=== PATIENT | female | born 1995 | race American Indian/Alaskan Native ===

== ENCOUNTER 2024-02-29 16:58 | Emergency (ER) | payer MEDICAID, SELFPAY ==
[2024-02-29 17:06] VITALS: BP 114/78; PULSE 91; RESP 16; TEMP 37.1; O2SAT 99; BMI 32.3
--- NOTE | 2024-02-29 17:12 | XR_ITS ---
Examination: Hand, left 3 views Technique: Hand AP, oblique, lateral 3 views Date and time of exam: February 29, 2024 1736 hrs. Indications: Injury to the hand today, hand pain Findings: No acute fracture. No dislocation. No foreign body Impression: No acute fracture
--- NOTE | 2024-02-29 17:13 | PD.EDRME ---
Rapid Medical Screening Exam [facility] Arrival date/time: 02/29/24 16:58 28-year-old female with no known medical history presents to the emergency room with a chief complaint of pain and tenderness to the third digit in the left hand. Patient states she was playing with her child and while playing injured the left third digit in her hand. Chief Complaint: Hand/Wrist Problems Vital signs: Vital Signs Temperature 98.7 F 02/29/24 17:06 Pulse Rate 91 02/29/24 17:06 Respiratory Rate 16 02/29/24 17:06 Blood Pressure 114/78 02/29/24 17:06 Pulse Oximetry (%) 99 02/29/24 17:06 Oxygen Delivery Method Room Air 02/29/24 17:06 Vital signs reviewed by provider: Yes
--- NOTE | 2024-02-29 20:04 | EDNOTE_ITS ---
Upper Extremity Injury RME/HPI General Chief Complaint: Hand/Wrist Problems Stated Complaint: NUMBNESS/SWELLING TO 3RD DIGIT OF LEFT HAND Time Seen by Provider: 02/29/24 19:13 Source: patient Arrival date/time: 02/29/24 16:58 28-year-old female past medical history of diabetes presents emergency department complaining of left third digit bruising and pain after hitting her hand while playing with her child. Mode of arrival: ambulatory Limitations: no limitations RME / HPI RME / HPI narrative: 02/29/24 16:58 28-year-old female with no known medical history presents to the emergency room with a chief complaint of pain and tenderness to the third digit in the left hand. Patient states she was playing with her child and while playing injured the left third digit in her hand. Related Data Previous Rx's ?Medication ?Instructions ?Recorded insulin glargine 100 unit/mL (3 25 unit (0.25 mL) subcut QPM 30 06/26/23 mL) subcutaneous pen (Lantus days #7.5 mL Solostar U-100 Insulin) insulin lispro 100 unit/mL 10 unit (0.1 mL) subcut TID 30 06/26/23 subcutaneous pen (Humalog KwikPen days #9 mL (U-100) Insulin) acetaminophen 300 mg-codeine 30 mg 2 tab PO TID PRN pain #20 tabs 12/05/23 tablet amoxicillin 875 mg-potassium 1 tab PO BID #20 tabs 12/05/23 clavulanate 125 mg tablet metformin 1,000 mg tablet 1,000 mg PO BID #60 tabs 12/05/23 Allergies Allergy/AdvReac Type Severity Reaction Status Date / Time No Known Allergies Allergy Verified 06/24/23 04:47 Review of Systems Review of Systems Systems Reviewed: All systems reviewed, normal except as documented Constitutional Constitutional: Reports system reviewed and no additional complaints, except as documented, Denies body ache(s), Denies chills and Denies fever(s) Eyes Eyes: Reports system reviewed and no additional complaints, except as documented and Denies change in vision ENT Ears, Nose, Mouth, and Throat: Reports system reviewed and no additional complaints, except as documented, Denies disequilibrium, Denies dizziness, Denies sore throat and Denies vertigo Cardiovascular Cardiovascular: Reports system reviewed and no additional complaints, except as documented, Denies chest pain and Denies dyspnea Respiratory Respiratory: Reports system reviewed and no additional complaints, except as documented, Denies chest congestion, Denies cough and Denies dyspnea Gastrointestinal Gastrointestinal: Reports system reviewed and no additional complaints, except as documented, Denies abdominal pain, Denies nausea and Denies vomiting Musculoskeletal Musculoskeletal: Reports system reviewed and no additional complaints, except as documented, Denies abnormal gait and Reports arthralgias Integumentary/Breasts Skin/Breast: Reports system reviewed and no additional complaints, except as documented, Denies erythema, Denies rash and Denies wounds Neurologic Neurologic: Reports system reviewed and no additional complaints, except as documented, Denies abnormal gait, Denies disequilibrium, Denies dizziness and Denies vertigo Past Medical History Past Medical History NEUROLOGIC: Negative Neurological Disorders or Seizures CARDIAC: Positive Cardiac Disorders (son swelling in heart); Negative Congestive Heart Failure RESPIRATORY: Negative Chronic Obstructive Pulmonary Disease (COPD) or Asthma GASTROINTESTINAL: Negative Gastrointestinal Disorders, Hepatitis or Colorectal Cancer GENITOURINARY: Negative Genitourinary Disorders, Renal Disease or Prostate Cancer REPRODUCTIVE: Negative Breast Cancer, Pelvic Inflammatory Disease or Testicular Cancer MUSCULOSKELETAL: Negative Musculoskeletal Disorders or Bone Cancer ENDOCRINE: Positive Diabetes Mellitus Type 2; Negative Endocrine Disorders, Diabetes Mellitus Type 1, [place]'s Syndrome, Liborio's Disease, Hyperthyroidism or Adrenal Disease HEMATOLOGIC: Negative Blood Disorders or Sickle Cell Disease OTHER HISTORY: Negative Hospitalization, Autoimmune Disease, Autism, Developmental Delay, Shingles, Falls, Blood Transfusions, Blood Transfusion Reaction, Anesthesia Reactions, Organ Transplant, MRSA, VRSA, Vancomycin- Resistant Enterococci, Human Immunodeficiency Virus (HIV), Chicken Pox, Measles, Mumps, Rubella ([place]izen [place] Measles), Pertussis, Clostridium Difficile, Cancer, Breast Cancer, Cervical Cancer, Colorectal Cancer, Lung Cancer, Ovarian Cancer, Prostate Cancer or Testicular Cancer Family History FAMILY HISTORY: Positive Family Psychiatric Problems and Family Cardiac Disorders; Negative Family Respiratory Disorders, Family Gastrointestinal Problems, Family Cancer, Family Surgery or Family Anesthesia Reaction Surgical History SURGICAL: Negative Cardiac Surgery, Endocrine Surgery, Ear Surgery, Abdominal Surgery, Nephrectomy, Joint Replacement, Neurologic Surgery, Mastectomy, Vasectomy or Organ Transplant Social History SMOKING STATUS: Never smoker SUBSTANCE USE: does not use ED Exam General Limitations: Present no limitations General appearance: Present alert and in no apparent distress Head Head exam: Present atraumatic Eye Eye exam: Present normal appearance, PERRL and EOMI ENT ENT exam: Present normal exam, normal oropharynx and mucous membranes moist Neck Neck exam: Present normal inspection, full ROM and trachea midline Chest Chest inspection: Present normal inspection and symmetric chest wall rise Respiratory Respiratory exam: Present normal lung sounds bilaterally Cardiovascular Cardiovascular exam: Present regular rate, normal rhythm and normal heart sounds Abdominal Exam Abdominal exam: Present soft and normal bowel sounds Extremities Exam Extremities exam: Present normal inspection and full ROM Expanded Upper Extremity Exam Hand L/R front image: 2 1. other (Bruising) Vascular exam: Normal capillary refill Back Exam Back exam: Present normal inspection and full ROM Neurological Exam Neurological exam: Present alert, oriented X3 and CN II-XII intact Psychiatric Psychiatric exam: Present normal affect and normal mood Skin Skin exam: Present warm, dry, intact and normal color Course Quality Measures none Orders Category Date Time Status XR hand comp LT min 3V Stat Exams 02/29/24 17:12 Completed Vital Signs Vital signs: Vital Signs Temperature 98.7 F 02/29/24 17:06 Pulse Rate 91 02/29/24 17:06 Respiratory Rate 16 02/29/24 17:06 Blood Pressure 114/78 02/29/24 17:06 Pulse Oximetry (%) 99 02/29/24 17:06 Oxygen Delivery Method Room Air 02/29/24 17:06 99% room air within normal limits Extremity Injury MDM Narrative MDM Narrative:: 28-year-old female past medical history of diabetes presents emergency department complaining of left third digit bruising and pain after hitting her hand while playing with her child. X-ray of hand was unremarkable. Left third digit neurovascularly intact with localized area with bruising with full active range of motion. Patient data External records reviewed:: [facility] previous records Clinical information provided by:: patient Social determinants that could affect healthcare access:: none Patient has the following chronic illnesses:: See chart How is presenting disease/condition affected by chronic disease/condition?: u neffected by Evaluation data The following diagnostics were reviewed and interpreted by me:: radiology exam(s) Lab and/or radiology exams considered but not ordered:: Ordered Interpretation Summary: Interpreted by me Medications / Prescriptions Medications or Prescriptions considered but not ordered:: N/A Medication administrations:: N/A Consultations Consultation(s) initiated? (list below): No Diagnosis Upper Extremity Injury Differential Diagnosis: finger sprain, dislocation of finger and fracture of hand Most likely diagnosis given after review of the tests above:: Finger sprain Admission Indicated Admission indicated?: not indicated Admission Request Was there a request for admission?: No Disposition Plan Disposition Plan: Discharge Discharge Attestation Discharge Attestation: The patient and all family members were given an opportunity to ask questions and understood the discharge instructions. Discharge instructions specifically effects, indications for sooner follow up or return to the emergency department, and the expected course of current diagnosis. Patient condition: Stable Discharge Plan Plan Patient Disposition: HOME (Self Care) Disposition Comment: Stable Prescriptions/Referrals Prescriptions/Med Rec: No Action insulin glargine [Lantus Solostar U-100 Insulin] 100 unit/mL (3 mL) insulin pen 25 unit subcut QPM 30 Days Qty: 7.5 1RF insulin lispro [Humalog KwikPen Insulin] 100 unit/mL insulin pen 10 unit subcut TID 30 Days Qty: 9 2RF metformin 1,000 mg tablet 1,000 mg PO BID Qty: 60 0RF acetaminophen-codeine 300-30 mg tablet 2 tab PO TID MDD 6 PRN (Reason: pain) Qty: 20 0RF amoxicillin-pot clavulanate 875-125 mg tablet 1 tab PO BID Qty: 20 0RF Referrals: Garcia([facility]),ANA M Corcoran [Primary Care Provider] - In 1 week Problem List Clinical Impression: Finger sprain Patient/Caregiver Discharge Instructions Discharge Activity: activity as tolerated Education Materials: ED Finger Sprain Additional Instructions: Take Tylenol as needed for pain. Follow-up with primary care provider in 2 to 3 days and request repeat x-ray if symptoms persist. Return to emergency department for any worsening symptoms or as needed. Print Language: Armenian Stand Alone Forms: Shaylee Award Info., Patient Portal Info Letter SEBASTIÁN/ANA M Supervising Physician KYLIE Supervising Physician: Dr. Vail
== END 2024-02-29 20:23 | disposition home or self-care (01) ==
PROVIDERS: Emergency Provider Emergency Medicine; PCP Nurse Practitioner Family
DX: S63.613A Unspecified sprain of left middle finger, initial encounter (principal); W50.0XXA Accidental hit or strike by another person, initial encounter; Y93.89 Activity, other specified
CPT/HCPCS: 73130; 99283

== ENCOUNTER 2024-12-03 12:50 | Emergency (ER) | payer MEDICAID, SELFPAY ==
[2024-12-03 12:57] VITALS: BP 115/81; PULSE 105; RESP 18; TEMP 36.7; O2SAT 97; BMI 25.2
--- NOTE | 2024-12-03 13:06 | PD.EDRECHK ---
ED Recheck Abnl Lab Rx-RME/HPI General Chief Complaint: Recheck/Abnormal Lab/Rx Stated Complaint: Blood sugar high, non compliant Time Seen by Provider: 12/03/24 12:52 Arrival date/time: 12/03/24 12:50 Limitations: no limitations RME / HPI RME / HPI narrative: 29-year-old female here with elevated blood sugar for the last 4 days. History of being admitted for DKA 2 years ago. Reports nausea and vomiting. No obvious fever or chills. But states was having bodyaches leading up to this. No chest pain or shortness of breath. No obvious urinary symptoms. No back pain or flank pain. No other complaints. Only takes Januvia 100. Stop taking send stop taking metformin. States the metformin was making her have diarrhea and was not worth it to her. And was told due to her history of pancreatitis she did not qualify for the Ozempic injections. Related Data Previous Rx's ?Medication ?Instructions ?Recorded insulin glargine 100 unit/mL (3 25 unit (0.25 mL) subcut QPM 30 06/26/23 mL) subcutaneous pen (Lantus days #7.5 mL Solostar U-100 Insulin) insulin lispro 100 unit/mL 10 unit (0.1 mL) subcut TID 30 06/26/23 subcutaneous pen (Humalog KwikPen days #9 mL (U-100) Insulin) acetaminophen 300 mg-codeine 30 mg 2 tab PO TID PRN pain #20 tabs 12/05/23 tablet amoxicillin 875 mg-potassium 1 tab PO BID #20 tabs 12/05/23 clavulanate 125 mg tablet metformin 1,000 mg tablet 1,000 mg PO BID #60 tabs 12/05/23 Allergies Allergy/AdvReac Type Severity Reaction Status Date / Time No Known Allergies Allergy Verified 12/03/24 12:54 Review of Systems Review of Systems Systems Reviewed: All systems reviewed, normal except as documented Constitutional Constitutional: Denies fever(s) Gastrointestinal Gastrointestinal: Reports as per HPI ED Exam General Limitations: Present no limitations General appearance: Present alert and in no apparent distress Head Head exam: Present atraumatic Eye Eye exam: Present normal appearance, PERRL and EOMI ENT ENT exam: Present normal exam, normal oropharynx and mucous membranes moist Neck Neck exam: Present normal inspection, full ROM and trachea midline Chest Chest inspection: Present normal inspection and symmetric chest wall rise Respiratory Respiratory exam: Present normal lung sounds bilaterally Cardiovascular Cardiovascular exam: Present regular rate, normal rhythm and normal heart sounds Abdominal Exam Abdominal exam: Present soft and normal bowel sounds Extremities Exam Extremities exam: Present normal inspection and full ROM Back Exam Back exam: Present normal inspection and full ROM Neurological Exam Neurological exam: Present alert, oriented X3 and CN II-XII intact Psychiatric Psychiatric exam: Present normal affect and normal mood Skin Skin exam: Present warm, dry, intact and normal color Course Quality Measures none Orders Category Date Time Status Bedside COVID-19 Antigen Test NOW Care 12/03/24 13:06 Completed Glucose [Bedside Blood Glucose] NOW Care 12/03/24 13:06 Completed Insert IV NOW Care 12/03/24 13:07 Completed XR chest 1V Stat Exams 12/03/24 16:31 Completed Beta Hydroxybutyrate Stat Lab 12/03/24 13:21 Completed Blood Culture (Lab) Stat Lab 12/03/24 15:43 Received CBC Stat Lab 12/03/24 13:21 Completed CMP [Comprehensive Metabolic Panel] Stat Lab 12/03/24 13:21 Completed Drug Screen,Urine Stat Lab 12/03/24 15:17 Completed HCG,Qualitative Serum Stat Lab 12/03/24 13:21 Completed Influenza A & B Rapid Panel Stat Lab 12/03/24 14:38 Completed Ketone [Beta Hydroxybutyrate] Stat Lab 12/03/24 17:17 Completed Lactic Acid [Lactate (Lactic Acid)] Stat Lab 12/03/24 13:21 Completed Lipase Stat Lab 12/03/24 13:21 Completed Procalcitonin Stat Lab 12/03/24 13:21 Completed Strep A Rapid Stat Lab 12/03/24 14:37 Completed UA [Urinalysis] Stat Lab 12/03/24 15:17 Completed VBG [Venous Blood Gas] Stat Lab 12/03/24 13:21 Completed Insulin Regular Med 12/03/24 16:33 Discontinued 5 unit SC X1 ONE Sodium Chloride 0.9% 1000 ml [Ns] 1,000 ml Med 12/03/24 13:08 Discontinued IV 999 mls/hr Sodium Chloride 0.9% 1000 ml [Ns] 1,000 ml Med 12/03/24 13:51 Discontinued IV 999 mls/hr Vital Signs Vital signs: Vital Signs Temperature 98.1 F 12/03/24 12:57 Pulse Rate 105 H 12/03/24 12:57 Respiratory Rate 18 12/03/24 12:57 Blood Pressure 115/81 12/03/24 12:57 Pulse Oximetry (%) 97 12/03/24 12:57 Oxygen Delivery Method Room Air 12/03/24 12:57 Recheck / Abnormal Lab / Rx MDM Narrative MDM Narrative:: 29-year-old female found not to be in DKA. She has a normal lactic acid despite elevated blood sugar and presence of ketones. Glucose was controlled with fluids and insulin advise follow-up with PCP and add on of additional medication. Did not want us to add on any new meds. Return to ER symptoms worsen Patient data External records reviewed:: [facility] previous records Clinical information provided by:: patient Social determinants that could affect healthcare access:: other (specify) Patient has the following chronic illnesses:: Diabetes How is presenting disease/condition affected by chronic disease/condition?: caused by Evaluation data The following diagnostics were reviewed and interpreted by me:: lab results and radiology exam(s) Lab and/or radiology exams considered but not ordered:: CT abdomen pelvis considered however clinical exam fairly benign Interpretation Summary: Normal CBC, essentially normal CMP, normal lactic, no acidosis there was, presence of ketones; Normal UA Negative influenza strep and COVID Medications / Prescriptions Medications or Prescriptions considered but not ordered:: Considered add-on of glipizide however can follow-up with PCP for Medication administrations:: Medication Administration History Discontinued Medications Sodium Chloride (Ns) 1,000 mls @ 999 mls/hr IV .Q1H1M ONE Stop: 12/03/24 14:08 Last Infusion: 12/03/24 16:35 Dose: Infused Documented By: Admin: 12/03/24 14:47 Dose: 999 mls/hr Documented By: CHERYL Sodium Chloride (Ns) 1,000 mls @ 999 mls/hr IV .Q1H1M ONE Stop: 12/03/24 14:51 Last Infusion: 12/03/24 16:36 Dose: Infused Documented By: Admin: 12/03/24 14:47 Dose: 999 mls/hr Documented By: CHERYL Insulin Human Regular (Insulin Hum Regular 1 Unit/0.01 Ml (Per Unit)) 5 unit SC X1 ONE Stop: 12/03/24 16:34 Last Admin: 12/03/24 16:41 Dose: 5 unit Documented By: JIMMY Co-signed By: CHERYL See above Consultations Consultation(s) initiated? (list below): No Diagnosis Recheck Differential Diagnosis: other (Hyperglycemia, DKA, poorly managed diabetes) Most likely diagnosis given after review of the tests above:: 1. hyperglycemia in DMII 2. nausea Admission Indicated Admission indicated?: not indicated Admission Request Was there a request for admission?: No Disposition Plan Disposition Plan: Discharge Discharge Attestation Discharge Attestation: The patient and all family members were given an opportunity to ask questions and understood the discharge instructions. Discharge instructions specifically effects, indications for sooner follow up or return to the emergency department, and the expected course of current diagnosis. Patient condition: Stable Discharge Plan Plan Patient Disposition: HOME (Self Care) Discharge Disposition comment: Follow-up with PCP in 2 to 3 days Prescriptions/Referrals Prescriptions/Med Rec: No Action insulin glargine [Lantus Solostar U-100 Insulin] 100 unit/mL (3 mL) insulin pen 25 unit subcut QPM 30 Days Qty: 7.5 1RF insulin lispro [Humalog KwikPen Insulin] 100 unit/mL insulin pen 10 unit subcut TID 30 Days Qty: 9 2RF metformin 1,000 mg tablet 1,000 mg PO BID Qty: 60 0RF acetaminophen-codeine 300-30 mg tablet 2 tab PO TID MDD 6 PRN (Reason: pain) Qty: 20 0RF amoxicillin-pot clavulanate 875-125 mg tablet 1 tab PO BID Qty: 20 0RF Referrals: Janny Mccollum PA-C [Primary Care Provider] - In 1 week Problem List Clinical Impression: Hyperglycemia due to type 2 diabetes mellitus, Nausea & vomiting Patient/Caregiver Discharge Instructions Print Language: Portuguese Stand Alone Forms: Shaylee Award Info., Patient Portal Info Letter PA/ANA M Supervising Physician PA/ANA M Supervising Physician: Dr. Jensen
[2024-12-03 13:31] LABS: Lactate (Lactic Acid) 1.1 mMol/L (0.4-2.0)
[2024-12-03 13:32] LABS: Base Excess, Venous -2 (-3-3); O2 Saturation, Venous 85 % (96-97); PCO2, Venous 35 mmHg (36-56); PO2, Venous 45 mmHg (15-58); pH, Venous 7.41 (7.33-7.66)
[2024-12-03 13:33] LABS: Basophils # (Auto) 0.0 Thou/mm3 (0.0-0.2); Basophils % (Auto) 0 % (0-2.5); Eosinophils # (Auto) 0.1 Thou/mm3 (0.0-0.5); Eosinophils % (Auto) 1 % (0-10); Hematocrit 40.2 % (36.0-46.0); Hemoglobin 13.8 g/dL (12.0-16.0); Immature Granulocytes Auto 0.03 Thou/mm3 (0.00-0.00); Lymphocytes # (Auto) 1.7 Thou/mm3 (1.0-4.8); Lymphocytes % (Auto) 18 % (10-50); Mean Corpuscular HGB Conc 34.3 g/dl (31.0-37.0); Mean Corpuscular Hemoglobin 27.3 pg (25.0-35.0); Mean Corpuscular Volume 79 fL (80-100); Monocytes # (Auto) 0.4 Thou/mm3 (0.0-0.8); Monocytes % (Auto) 4 % (0-12); Neutrophils # (Auto) 7.2 Thou/mm3 (1.8-7.7); Neutrophils % (Auto) 76 % (37-80); Nucleated Red Blood Cell # 0.00 Thou/mm3 (0.00-0.00); Nucleated Red Blood Cell % 0 /100 WBC (0); Platelet Count 286 Thou/mm3 (140-440); RDW Standard Deviation 36.8 fL (36.4-46.3); Red Blood Count 5.06 Miln/mm3 (4.00-5.20); White Blood Count 9.5 Thou/mm3 (3.6-11.0)
[2024-12-03 13:46] LABS: Beta Hydroxybutyrate 1.6 mmol/L (<0.6)
[2024-12-03 13:53] LABS: Alanine Aminotransferase 19 U/L (10-49); Albumin, Serum 4.3 gm/dL (3.5-5.0); Albumin/Globulin Ratio 1.3 (1.2-2.2); Alkaline Phosphatase 83 U/L (46-116); Anion Gap 12 (7-16); Aspartate Amino Transferase 24 U/L (0-34); BUN/Creatinine Ratio 13 Ratio (12-20); Bilirubin,Total 0.4 mg/dL (0.3-1.2); Blood Urea Nitrogen 9 mg/dL (9-23); Calcium 9.2 mg/dL (8.3-10.6); Calcium (Corrected) 9.2 mg/dL (8.5-10.1); Carbon Dioxide 22.6 mMol/L (20.0-31.0); Chloride 101 mMol/L (98-107); Creatinine (Component) 0.7 mg/dL (0.6-1.3); Estimated Creatinine Clearance 113.5 mL/min (>60); Globulin 3.3 gm/dL (2.3-3.5); Lipase 33 U/L (12-53); Osmolality,Calculated 290 (275-295); Potassium 4.1 mMol/L (3.4-5.1); Sodium 136 mMol/L (136-145); Total Protein 7.6 gm/dL (5.7-8.2); eGFR > 60 See Note
[2024-12-03 14:01] LABS: Procalcitonin 0.06 ng/ml (0.0-0.49)
[2024-12-03 14:03] LABS: Glucose 453 mg/dL (74-106)
[2024-12-03 14:05] LABS: HCG,Qualitative Serum Negative
[2024-12-03] MEDS: SODIUM CHLORIDE 0.9% 1000 ML 1,000 ML 999 ML IV ×2 (14:47)
[2024-12-03 15:25] LABS: Collection Type, Urine Clean Catch
[2024-12-03 15:41] LABS: Bacteria,Urine Rare; Bilirubin,Urine Negative (Negative); Blood,Urine Negative (Negative); Clarity,Urine Clear (Clear/Hazy); Color,Urine Colorless (Lt Yel-Yel); Glucose, Urine 4+ (Negative); Ketones,Urine 2+ (Negative); Leukocyte Esterase,Urine Negative (Negative); Nitrite,Urine Negative (Negative); PH,Urine 6.0 (5.0-7.0); Protein,Urine Negative (Neg - Trace); RBC,Urine 3 /hpf (0-3); Specific Gravity,Urine 1.039 (1.001-1.035); Squamous Epithelial Cell,Urine 1 /hpf (0-5); Urobilinogen,Urine Negative mg/dL (0.0-1.0); WBC,Urine 1 /hpf (0-5)
[2024-12-03 15:43] LABS: Amphetamine/Methamp Scrn,U Negative (Negative); Barbiturate Screen,Urine Negative (Negative); Benzodiazepines Screen,Urine Negative (Negative); Benzoylecgonine Screen, Ur Negative (Negative); Fentanyl Screen,Urine Negative (Negative); Opiate Screen,Urine Negative (Negative); THC Screen,Urine Negative (Negative)
[2024-12-03 15:46] LABS: Strep A Rapid Negative (Negative)
[2024-12-03 15:46] LABS: Influenza A Ag Negative; Influenza B Ag Negative
[2024-12-03 16:25] VITALS: BP 102/68; PULSE 74; RESP 16; TEMP 36.7; O2SAT 98
--- NOTE | 2024-12-03 16:31 | XR_ITS ---
. EXAMINATION: AP chest single view TECHNIQUE: AP portable upright chest single view Date and time: December 03, 2024, 1640 hours, comparison February 06, 2019 INDICATIONS: Shortness of breath and chest pain beginning 2 days ago. FINDINGS: Normal heart size. Lungs are clear. The osseous structures are intact. IMPRESSION: No active disease
[2024-12-03] MEDS: INSULIN HUM REGULAR 1 UNIT/0.01 ML (PER UNIT) 5 UNIT SC (16:41)
[2024-12-03 17:37] LABS: Beta Hydroxybutyrate 2.7 mmol/L (<0.6)
[2024-12-03 18:18] VITALS: BP 112/80; PULSE 89; RESP 16; TEMP 36.8; O2SAT 100
[2024-12-03 18:24] VITALS: BP 112/80; PULSE 86; RESP 16; O2SAT 99
== END 2024-12-03 18:24 | disposition home or self-care (01) ==
PROVIDERS: Physician Assistant; Emergency Provider Emergency Medicine
DX: E11.65 Type 2 diabetes mellitus with hyperglycemia (principal); Z79.4 Long term (current) use of insulin; Z79.84 Long term (current) use of oral hypoglycemic drugs
CPT/HCPCS: 36415; 71045; 80053; 80307; 81001; 82010; 82803; 83605; 83690; 84145; 84703; 85025; 87040; 87502; 87651; 87811; 96360; 96361; 99284; J1815; J7030